=== PATIENT | male | born 1955 | race Caucasian/White ===

== ENCOUNTER 2017-10-18 06:22 | Inpatient (IN) | payer OTHER ==
--- NOTE | 2017-10-10 11:17 | HP ---
HISTORY AND PHYSICAL: DATE OF ADMISSION: 10/18/17 He is entering [facility] on 10/18/17 for a right total knee replacement. CHIEF COMPLAINT: Right knee pain. HISTORY OF PRESENT ILLNESS: This 62-year-old man has had right knee problems increasing over the past year with pain, limited walking distance 1 to 2 blocks , difficulty with stairs. He enjoys being very active. He wants to remain active and he desires to proceed with a knee replacement and we have recommended it. PAST MEDICAL HISTORY: No allergies. No history of chest pain or heart attack. He is able to walk up 2 flights of stairs without chest pain, without shortness of breath. He is able to swim for 1 mile. He has had some skin cancers removed. He has no history of DVT or pulmonary embolism. SOCIAL HISTORY: He quit smoking in 1998. He does not drink and he does attend AA. No bleeding tendencies. PHYSICAL EXAMINATION GENERAL: Well-nourished and well-developed, slight limp on the right. HEENT: Head is NC/AT. LUNGS: Clear bilaterally. HEART: Regular. S1, S2 normal. No murmurs or gallops. ABDOMEN: Soft and nontender. He does have an umbilical hernia. EXTREMITIES: Right knee extension -3 to 4 degrees, flexion 95 degrees with some discomfort. Right knee nontender medially, laterally, anteriorly, posteriorly. MCL and LCL are stable. Gt and posterior drawer are normal. The thigh and calf are soft. Posterior tibial pulses 2+ on the right. No swelling bilaterally of the legs, ankles, and feet. The right knee has severe arthritis in the medial compartment, moderate arthritis in the patellofemoral compartment. NEUROLOGIC: The cranial nerves are grossly intact. IMPRESSION: Severe right knee arthritis in the medial compartment. PLAN: Right total knee replacement. Questions were answered, risks and complications were reviewed. [id number]/[facility] #: [id number] [facility] HEALTHRickey
[~2017-10-18 06:22] MED LIST: Buffered Lidocaine 0.9% SYRIN* 5 ML/SYR SYRINGE INTRADERM ONE; Dexamethasone IV* 4 MG/ML 1 ML (4 MG) IV SLOW PU ONE; Famotidine IV* 10 MG/ML 2 ML (20 mg) IV ONE
[2017-10-18] MEDS ORDERED: Buffered Lidocaine 0.9% SYRIN* 5 ML/SYR SYRINGE ONE (06:29)
[2017-10-18] MEDS ORDERED: Dexamethasone IV* 4 MG/ML 1 ML (4 MG) ONE (06:29)
[2017-10-18] MEDS ORDERED: Famotidine IV* 10 MG/ML 2 ML (20 mg) ONE (06:29)
[2017-10-18] MEDS ORDERED: ceFAZolin 2 GM PREMIX (*) 2 GM/50 ML BAG IVPB ONE (06:29)
[2017-10-18] MEDS ORDERED: Midazolam* 1 MG/ML 10 ML VIAL (10 MG) ONE (07:13)
[2017-10-18] MEDS ORDERED: Propofol* 10 MG/ML 20 ML BTL IV PUSH ONE (07:27)
[2017-10-18] MEDS ORDERED: Ondansetron INJ* 2 MG/ML VIAL ONE (07:27)
[2017-10-18] MEDS ORDERED: Bupivacaine 0.5% SDV PF* 30 ML VIAL ONE (07:27)
[2017-10-18] MEDS ORDERED: KETAMINE HCL* 50 MG/ML 10 ML VIAL ONE (07:28)
[2017-10-18] MEDS ORDERED: Morphine PF AMP (0.5MG/ML)* 5 MG/10 ML AMP ONE (07:28)
[2017-10-18] MEDS ORDERED: DiMENhydriNATE IV* 50 MG/ML VIAL IV PUSH PRN (08:18)
[2017-10-18] MEDS ORDERED: Nalbuphine* 20 MG/ML 1 ML VIAL IV PRN ×2 (08:18)
[2017-10-18] MEDS ORDERED: Ondansetron INJ* 2 MG/ML VIAL IV PRN ×2 (08:18→10:30)
[2017-10-18] MEDS ORDERED: oxyCODONE/Acetamin 5/325 MG* TAB PO PRN (08:18)
[2017-10-18] MEDS ORDERED: Naloxone* 0.4 MG/ML 1 ML VIAL IV PRN (08:18)
[2017-10-18] MEDS ORDERED: Lidocaine 1% MPF wEPI 200,000* 30 ML SDV ONE (08:18)
[2017-10-18] MEDS ORDERED: Ropivacaine* 300 MG in NS 0.9% 250 ML* 240 ML EPIDURAL SCH (09:00)
[2017-10-18] MEDS ORDERED: Magnesium Hydroxide LIQ* 30 ML UDC PO PRN (10:30)
[2017-10-18] MEDS ORDERED: Acetaminophen TAB* 325 MG PO PRN (10:30)
[2017-10-18] MEDS ORDERED: Morphine INJ* 4 MG/ML 1 ML CARPUJECT IV PRN (10:30)
--- NOTE | 2017-10-18 11:37 | RAD ---
INDICATION: Status post total right knee replacement surgery. TECHNIQUE: 2 views of the right knee were obtained. FINDINGS: The patient is status post total right knee replacement surgery. The bones and prostheses are in normal alignment. There are 2 surgical drains anterior to the distal femur. There are multiple surgical marisabel present. IMPRESSION: STATUS POST TOTAL RIGHT KNEE REPLACEMENT SURGERY.
[2017-10-18] MEDS: Scopolamine 1.5 mg* PATCH TRANSDERM SCH ×2 (13:29→15:46)
[2017-10-18] MEDS: ceFAZolin 1 GM VIAL(*) 1 GM in D5W 50 ML BAG* 50 ML IVPB SCH ×2 (15:23→23:43)
[2017-10-18] MEDS: oxyCODONE/Acetamin 5/325 MG* TAB PO PRN ×2 (20:30→23:42)
[2017-10-18] MEDS: Docusate CAP* 100 MG PO SCH (22:32)
[2017-10-18] MEDS: Atorvastatin* 20 MG TAB PO SCH (22:32)
--- NOTE | 2017-10-19 01:34 | OP ---
DATE OF OPERATION: 10/18/17 - ROOM #342 DATE OF : 51 SURGICAL CARE: Right knee. SURGEON: Juan Manuel Potter MD ASSISTANTS: RENEE Rubin and kindergarten instructional assistant, Ely Rowe, surgical corsetier. ANESTHESIOLOGIST: Dr. Blaze Valentine. ANESTHESIA: Spinal with Duramorph and epidural IV sedation. PRE-OP DIAGNOSIS: Severe arthritis of the right knee in the medial compartment , especially with varus malalignment. POST-OP DIAGNOSIS: Severe arthritis of the right knee in the medial compartment , especially with varus malalignment. OPERATIVE PROCEDURE: Right total knee replacement. COMPONENTS UTILIZED: Linda Persona Knee, size 32 patella, size 9 femur, a 10 articular surface and a size F tibia. COMPLICATIONS: There were no complications. DRAINS: Two drains, right knee at the end of the case. BLOOD LOSS: 200 mL. REPLACEMENT: Crystalloid fluids. OPERATIVE INDICATIONS: Severe arthritis of the right knee. It has been no longer responsive to nonoperative care and a right total knee replacement was recommended. DESCRIPTION OF PROCEDURE: The patient was brought to the operating room and placed on the operating room table in a supine position. Following the administration of the anesthetic in a sitting position, he was returned to the supine position, a Kimball catheter was inserted. The right leg was noted to have a 2+ posterior tibial pulse and flexion contracture of the knee. The right leg was wrapped with a proximal thigh tourniquet. He was given a preliminary chlorhexidine prep and then a final formal prep with ChloraPrep from the tourniquet to the tips of the toes. After prepping, draping and sealing off, we did our universal protocol time-out confirming Hakan Mirza and a plan for right total knee replacement. We all agreed and we proceeded. The surgery was done without tourniquet until the clean up and cementing phase of the case and the knee was acutely flexed with the right foot on a padded foot piece. The skin incision went from 2 fingerbreadths proximal to superior pole of the patella to the medial aspect of the tibial tubercle. Careful hemostasis was checked and achieved throughout the case utilizing electrocautery. The knee was entered medial parapatellar dividing the soft tissues on the tibia down to the bone just medial to the tibial tubercle, proceeding up to the joint line. The quad tendon was divided at the junction of the rectus femoris and vastus medialis staying as close to vastus medialis as possible. The knee had clear goldish synovial fluid. The knee was completely eburnated medial femoral condyle and medial tibial plateau with osteophytes and scooping out of the medial tibial plateau some. There was osteophytes on the trochlea and on the lateral femoral condyle as well and osteophytes were overgrowing the intercondylar notch. The remains of the anterior horn of medial meniscus were excised. The anteromedial soft tissues on the tibia were elevated subperiosteally going around to the deep MCL and into the posteromedial corner of the knee. The patella was made so that it could be everted. The infrapatellar fat pad was largely excised and synovectomy completed around the patella. The lateral meniscus was carefully removed and care was taken to have good hemostasis in the region of the lateral genicula. The ACL and the PCL were uplifted from their femoral origins and the tibia was made so it could be subluxated forward from under the femur. The PCL was carefully excised and careful hemostasis was achieved. Care was taken especially in the region of the posterior cruciate ligament. The distal anterior femur was exposed subperiosteally for referencing and measuring. The proximal tibial cut was made first. Our goal here was to have a tibial surface that would be perpendicular to the long axis of the tibia and have a slight posterior slope removing a centimeter of bone laterally and a few millimeters medially. After this, the femoral intramedullary canal was entered with a drill. The canal was suctioned to discourage embolization and the distal femoral cutting guide was applied on the 2 and 6 degrees of valgus and a distal femoral cut was completed and a good extension gap was noted of 10. The femur was then measured for a size 9 and the external rotation was into the distal femur, then 9 was applied and the anterior, posterior and chamfering cuts were completed. We then finished removal of the posterior horn medial meniscus carefully, preserving the MCL, the osteophyte on the posteromedial femoral condyle, the lateral meniscus and the PCL. We had a nice flexion gap at 90 degrees of flexion with a 10 mm block. The femur was then completed with the intercondylar cut out and the femoral canal was cleaned x6 with saline, suctioned empty and then a bone plug inserted in the femur. The tibia was then completed for the size F and the knee was articulated and extended with a F tibia 10 articular surface and 9 femur. With full knee extension, stable ligaments in extension and satisfactory alignment in extension , and stable ligaments in 90 degrees of flexion. The patella was cut flat, a 32 was chosen, 3 drill holes were made and these were undercut for optimal cement interdigitation. A lateral release was not necessary. The leg was then exsanguinated. The tourniquet elevated to 275. The knee was cleaned in extension with 2 L of pulsed saline irrigation. The knee was then flexed, retractors were put into position and the bony surfaces were cleaned in flexion and then carefully dried. The cement was mixed and the components were cemented into position; the patella followed by tibia, followed by femur, each was impacted. Excess cement was removed and the knee was articulated and extended during the final hardening. The tourniquet was then deflated, careful hemostasis checked and achieved during closure. The pericapsular tissues were infiltrated with lidocaine with epinephrine 28 to 30 mL posteromedially and medially. The knee was thoroughly checked for loose fragments of cement and they were removed. The quad mechanism reapproximated with interrupted #1 Vicryl in [id number] fashion, the same with the medial retinaculum. Distally we used 0 Vicryl. The deep bursa and fascia closed with 0 Vicryl and then the superficial subcu closed with 3-0 Vicryl and then marisabel on the skin. The knee was completely extended and completely flexed well past 130 degrees several times during the closure. The posterior tibial pulse was noted to be 2 + at the end of the case. The drains were brought out the superolateral suprapatellar pouch. After inserting the marisabel, the knee was dressed with Betadine soaked release, the same with the drains and then sterile gauze, sterile Webril, cryotherapy cuff, ABD pads and then a 6-inch Johnny bandage loosely applied. The patient was returned to the recovery room in stable and satisfactory condition having tolerated the procedure very well. [id number]/[facility] #: [id number] MACK
[2017-10-19] MEDS: oxyCODONE/Acetamin 5/325 MG* TAB PO PRN ×5 (05:02→22:19)
[2017-10-19] MEDS ORDERED: oxyCODONE/Acetamin 5/325 MG* TAB PO PRN (06:00)
[2017-10-19 06:21] LABS: Hematocrit 35 % (42-52); Hemoglobin 12.1 g/dl (14.0-18.0)
[2017-10-19 06:29] LABS: Calcium 8.3 mg/dL (8.6-10.3); EGFR African American 125.2 (>60); EGFR Non-African American 97.3 (>60); Potassium 3.3 mmol/L (3.5-5.0)
[2017-10-19] MEDS: Aspirin TAB* 325 MG PO SCH (07:59)
[2017-10-19] MEDS: Lisinopril TAB* 10 MG PO SCH (07:59)
[2017-10-19] MEDS: Docusate CAP* 100 MG PO SCH ×2 (07:59→19:59)
[2017-10-19] MEDS: Hydrochlorothiazide TAB* 25 MG PO SCH (07:59)
[2017-10-19] MEDS: Multivitamins/Minerals TAB PO SCH (07:59)
[2017-10-19] MEDS: ceFAZolin 1 GM VIAL(*) 1 GM in D5W 50 ML BAG* 50 ML IVPB SCH (07:59)
--- NOTE | 2017-10-19 08:40 | PN ---
Progress Note - Progress Note Date of Service: 10/19/17 SOAP: Subjective: [] Objective: [] Vital Signs Temp 98.3 F 10/19/17 07:33 Pulse 63 10/19/17 07:33 Resp 18 10/19/17 07:59 BP 141/78 10/19/17 07:33 Pulse Ox 95 10/19/17 07:33 Intake & Output 10/18/17 10/19/17 10/19/17 18:59 06:59 18:59 Intake Total 2785 2385 220 Output Total 1200 675 Balance 1585 1710 220 Intake: IV Fluids 2560 980 LR 2500 980 NS 50ML, Cefazolin 2G 50 Ropivicaine 0.1 10 IVPB 55 ABX - CEFAZOLIN 55 Oral 225 1350 220 Output: Urine 300 Kimball 900 675 Laboratory Last Values Hgb 12.1 g/dl (14.0-18.0) L 10/19/17 05:52 Hct 35 % (42-52) L 10/19/17 05:52 Sodium 138 mmol/L (133-145) 10/19/17 05:52 Potassium 3.3 mmol/L (3.5-5.0) L 10/19/17 05:52 Chloride 103 mmol/L (101-111) 10/19/17 05:52 Carbon Dioxide 29 mmol/L (22-32) 10/19/17 05:52 Anion Gap 6 mmol/L (2-11) 10/19/17 05:52 BUN 20 mg/dL (6-24) 10/19/17 05:52 Creatinine 0.80 mg/dL (0.67-1.17) 10/19/17 05:52 Est GFR ( Amer) 125.2 (>60) 10/19/17 05:52 Est GFR (Non-Af Amer) 97.3 (>60) 10/19/17 05:52 BUN/Creatinine Ratio 25.0 (8-20) H 10/19/17 05:52 Glucose 122 mg/dL (70-100) H 10/19/17 05:52 Calcium 8.3 mg/dL (8.6-10.3) L 10/19/17 05:52 General: OOB in chair, well appearing in no acute distress RLE: Dressing CDI BL LE: Calves supple and nontender without erythema, edema or palpable cords. Negative genna's sign. DF/PF intact. DP/PT 2+ Assessment: []POD 1 s/p right total knee arthroplasty, Dr. Potter Plan: []WBAT PT/OT ASA 325 qd Morphine result in nausea. Switched to dilaudid. Option for Oxycodone added PRN. Hypokalemia - 20 mEq qd replacement ordered. Recheck outpatient
[2017-10-19] MEDS ORDERED: oxyCODONE TAB* 5 MG TAB PO PRN (09:36)
[2017-10-19] MEDS ORDERED: oxyCODONE TAB* 5 MG TAB ONE (09:55)
[2017-10-19] MEDS: oxyCODONE TAB* 5 MG TAB PO PRN ×4 (09:56→23:59)
--- NOTE | 2017-10-19 10:15 | PN ---
Progress Note - Progress Note Date of Service: 10/19/17 Note: Day one following right total knee. X-ray right knee after surgery was satisfactory, 2 views. Pain has been under control overnight. A leaky drain soaked his gown and bed yesterday PM and all was cleaned up by the nursing staff. Awake, alert, and no marked distress this AM. Breathing easily. Intake/output are satisfactory. Hct is 35%, low and acceptable. Potassium is low at 3.3. 2 drains removed right knee. Right post tib. pulse is 2 plus. Exercises done right ankle, knee and hip. Active hip IR and ER and extension. Active right ankle movements up and down. Some swelling of right ankle and foot. Impressions: Doing well after Total knee right. Acute blood loss anemia and hypokalemia. Plans: KCl replacement ordered. Mobilize on the TKR rehab protocol. Goals: Home 10/20 or 10/21
[2017-10-19] MEDS: Potassium Chloride LIQUID* 20 MEQ PACKET PO SCH (10:29)
[2017-10-19] MEDS: Atorvastatin* 20 MG TAB PO SCH (17:05)
[2017-10-19] MEDS: HYDROmorphone INJ* 2 MG/ML CARPUJECT SYRINGE IV SLOW PU PRN ×2 (18:57→23:55)
[2017-10-20] MEDS: oxyCODONE/Acetamin 5/325 MG* TAB PO PRN ×5 (02:24→21:06)
[2017-10-20] MEDS: HYDROmorphone INJ* 2 MG/ML CARPUJECT SYRINGE IV SLOW PU PRN (03:49)
[2017-10-20] MEDS ORDERED: HYDROmorphone INJ* 2 MG/ML CARPUJECT SYRINGE IV SLOW PU PRN ×2 (04:00→05:49)
[2017-10-20] MEDS ORDERED: Cyclobenzaprine TAB* 10 MG PO PRN (04:02)
[2017-10-20] MEDS: Morphine TAB Extended Release (*) 15 MG TAB.ER PO PRN ×2 (04:05→16:55)
[2017-10-20] MEDS: oxyCODONE TAB* 5 MG TAB PO PRN ×2 (04:17→10:02)
[2017-10-20 05:41] LABS: Hematocrit 36 % (42-52); Hemoglobin 12.5 g/dl (14.0-18.0)
[2017-10-20] MEDS ORDERED: HYDROmorphone INJ* 1 MG/ML CARPUJECT SYRINGE ONE (07:46)
[2017-10-20] MEDS: HYDROmorphone INJ* 1 MG/ML CARPUJECT SYRINGE IV SLOW PU PRN ×2 (07:48→08:28)
[2017-10-20] MEDS ORDERED: Diazepam TAB(*) 5 MG PO ONE (07:59)
[2017-10-20] MEDS ORDERED: Diazepam TAB(*) 5 MG PO PRN (08:01)
--- NOTE | 2017-10-20 08:09 | PN ---
Progress Note - Progress Note Date of Service: 10/20/17 Note: 99 degrees F, Hct 36% I adn O satisfactory. Lots of right knee pain overnight. Received 1 mg dilaudid, and more narcotic. Breathing easily. Dressing changed and surgery is swollen clean and dry, new betadine/telfa dressing applied. Movements encouraged and done. Right PT and DP pulses are 2 plus. Plans: Muscle relaxants, pain meds., drinking and up with walker.
[2017-10-20] MEDS: Multivitamins/Minerals TAB PO SCH (08:27)
[2017-10-20] MEDS: Ibuprofen TAB* 600 MG PO PRN (08:27)
[2017-10-20] MEDS: Aspirin TAB* 325 MG PO SCH (08:27)
[2017-10-20] MEDS: Hydrochlorothiazide TAB* 25 MG PO SCH (08:27)
[2017-10-20] MEDS: Lisinopril TAB* 10 MG PO SCH (08:28)
[2017-10-20] MEDS: Docusate CAP* 100 MG PO SCH ×2 (08:28→21:05)
[2017-10-20] MEDS: Potassium Chloride LIQUID* 20 MEQ PACKET PO SCH (08:34)
[2017-10-20] MEDS ORDERED: Potassium Chloride LIQUID* 20 MEQ PACKET PO SCH (09:00)
[2017-10-20] MEDS: Atorvastatin* 20 MG TAB PO SCH (16:57)
[2017-10-20] MEDS: diPHENhydraMINE PO* 25 MG PO PRN (21:06)
[2017-10-21] MEDS: oxyCODONE/Acetamin 5/325 MG* TAB PO PRN ×3 (02:04→11:05)
[2017-10-21] MEDS: diPHENhydraMINE PO* 25 MG PO PRN (04:00)
[2017-10-21 05:36] LABS: Hematocrit 35 % (42-52); Hemoglobin 12.3 g/dl (14.0-18.0)
[2017-10-21 08:08] VITALS: BP 159/78
[2017-10-21] MEDS: Hydrochlorothiazide TAB* 25 MG PO SCH (08:20)
[2017-10-21] MEDS: Aspirin TAB* 325 MG PO SCH (08:20)
[2017-10-21] MEDS: Docusate CAP* 100 MG PO SCH (08:20)
[2017-10-21] MEDS: Multivitamins/Minerals TAB PO SCH (08:20)
[2017-10-21] MEDS: Lisinopril TAB* 10 MG PO SCH (08:20)
[2017-10-21] MEDS: Ibuprofen TAB* 600 MG PO PRN (08:20)
[2017-10-21] MEDS ORDERED: Scopolamine PATCH Remove* 1 NOTE MISC PATCH OFF ONE (08:21)
[2017-10-21] MEDS: Potassium Chloride LIQUID* 20 MEQ PACKET PO SCH (08:23)
--- NOTE | 2017-10-21 10:26 | PN ---
Progress Note - Progress Note Date of Service: 10/21/17 SOAP: Subjective: 62 y/o male s/p R NIYAH 10/[address] Wise. Objective: General- Well appearing, NAD, AO sitting in chair comfortably MSK- Dressing removed, i d/c/i, minimal bloody drainage seen, new dressing placed, minimal R LE edeam, PT 2+ b/l, neg genna b/l, PT/ DP 2+ b/l. Vital Signs Temp 97.8 F 10/21/17 07:33 Pulse 76 10/21/17 07:33 Resp 16 10/21/17 08:07 BP 159/78 10/21/17 07:33 Pulse Ox 96 10/21/17 07:33 Intake & Output 10/20/17 10/21/17 10/21/17 18:59 06:59 18:59 Intake Total 995 800 230 Output Total 1500 1750 300 Balance -505 -950 -70 Intake: Oral 995 800 230 Output: Urine 1500 1750 300 Other: Estimated Void Medium Assessment: Stable 62 y/o male s/p R NIYAH 10/[address] Wise. Plan: - D/C to HOme today - Continue PT/ OT as shown - ASA 325mg BID x 30 days - Follow up with DR. Potter within 3-4 weeks - Pain control- continue motrin, oxycodone for pain every 3 hours as needed, flexeril for muscle spasm - Klor-con given for low K levels in house. Active Medications Generic Name Dose Route Start Last Admin Trade Name Freq PRN Reason Stop Dose Admin Acetaminophen 650 mg 10/18/17 10:30 Tylenol Tab* PO Q4H PRN pain and temp Aspirin 325 mg 10/19/17 09:00 10/21/17 08:20 Aspirin Tab* PO 325 mg DAILY GLENYS Administration Atorvastatin Calcium 20 mg 10/18/17 17:00 10/20/17 16:57 Lipitor* PO 20 mg 1700 GLENYS Administration Cyclobenzaprine HCl 10 mg 10/20/17 04:02 Flexeril Tab* PO Q8H PRN MUSCLE SPASMS Diazepam 5 mg 10/20/17 08:01 Valium Tab(*) PO Q8H PRN AGITATION - SEVERE Diphenhydramine HCl 25 mg 10/18/17 10:30 10/21/17 04:00 Benadryl Po* PO 25 mg Q6H PRN Administration itching Docusate Sodium 100 mg 10/18/17 21:00 10/21/17 08:20 Colace Cap* PO 100 mg BID GLENYS Administration Hydrochlorothiazide 25 mg 10/19/17 09:00 10/21/17 08:20 Hydrodiuril Tab* PO 25 mg QAM GLENYS Administration Hydromorphone HCl 0.5 mg 10/20/17 07:46 10/20/17 08:28 Dilaudid Injic* IV SLOW PU 0.5 mg Q2H PRN Administration PAIN Lactated Ringer's 1,000 mls @ 100 mls/hr 10/18/17 11:00 10/18/17 22:32 Lactated Ringers 1000 Ml Bag* IV 100 mls/hr PER RATE GLENYS Administration Ibuprofen 600 mg 10/20/17 07:46 10/21/17 08:20 Motrin Tab* PO 600 mg Q8H PRN Administration PAIN Lisinopril 20 mg 10/19/17 09:00 10/21/17 08:20 Prinivil Tab* PO 20 mg QAM GLENYS Administration Magnesium Hydroxide 30 ml 10/18/17 10:30 Milk Of Magnesia Liq* PO Q6H PRN constipation Morphine Sulfate 15 mg 10/20/17 04:00 10/20/17 16:55 Ms Contin(*) PO 15 mg Q12H PRN Administration PAIN Multivitamins/Minerals 1 tab 10/19/17 09:00 10/21/17 08:20 Theragran/Minerals Tab* PO 1 tab QAM GLENYS Administration Ondansetron HCl 4 mg 10/18/17 10:30 Zofran Inj* IV Q6H PRN nausea Oxycodone HCl 10 mg 10/19/17 09:51 10/20/17 10:02 Roxycodone Tab* PO 10 mg Q4H PRN Administration PAIN - MODERATE TO SEVERE Oxycodone HCl 10 mg 10/19/17 09:36 Roxycodone Tab* PO Q4H PRN PAIN - SEVERE Oxycodone/Acetaminophen 1 tab 10/19/17 06:00 Percocet 5/325 Tab* PO Q3H PRN PAIN - MODERATE Oxycodone/Acetaminophen 2 tab 10/19/17 06:00 10/21/17 05:30 Percocet 5/325 Tab* PO 2 tab Q3H PRN Administration PAIN - MODERATE TO SEVERE Potassium Chloride 20 meq 10/19/17 10:00 10/21/17 08:23 Klor-Con Liquid* PO 20 meq DAILY GLENYS Administration
--- NOTE | 2017-10-22 06:07 | DS ---
DISCHARGE SUMMARY: DATE OF ADMISSION: 10/18/17 DATE OF DISCHARGE: 10/21/17 ATTENDING PHYSICIAN: Dr. Potter * (DICTATED BY RENEE ANTONIO) CHIEF COMPLAINT: 1. Right knee pain. 2. Hypertension. 3. Elevated cholesterol. POSTOPERATIVE DIAGNOSES: 1. Status post right total knee arthroplasty. 2. Hypertension. 3. Elevated cholesterol. PROCEDURE: Right total knee arthroplasty. CONSULTATIONS: 1. Physical Therapy. 2. Occupational Therapy. BRIEF HISTORY: Mr. Graham is a very pleasant 62-year-old gentleman with severe end- stage degenerative osteoarthritis of the right knee, who failed conservative treatment and elected to undergo a right total knee arthroplasty on 10/18/[address] Potter. HOSPITAL COURSE: The patient was admitted to [facility] on 10/18/17 where he underwent a right total knee arthroplasty, which was uncomplicated. Postoperatively, he recovered on the surgical short stay unit. On postoperative day 1, his 2 drains were removed from his knee after one had dislodged causing bleeding on the surgical dressing. His Kimball was removed on postoperative day 1 and he was voiding on his own without difficulty. He advanced to a regular diet and his pain was controlled using only p.o. Percocet on date of discharge. His labs and vital signs remained stable. He was able to weight bear as tolerated on the right lower extremity. He advanced appropriately with physical therapy and occupational therapy and was deemed appropriate for home discharge. His DVT prophylaxis was managed with aspirin. By postoperative day 3, he was orthopedically and medically stable for discharge to go home with home services. PHYSICAL EXAMINATION: General: Well appearing, no acute distress, alert and oriented, sitting comfortably in the chair. Vital Signs: Temperature 97.8, pulse rate of 76, respirations of 16, oxygen saturation on room air 96%, blood pressure 159/78. Examination of the right lower extremity demonstrates bilateral equal dorsiflexion and plantar flexion with minimal edema noted in the right lower extremity. Posterior tibial pulses 2+ bilaterally. Sensation is grossly intact. Negative Homans' sign bilaterally. Dressing removed revealing a surgical incision over the right knee, held with marisabel without any signs of dehiscence, minimal bloody drainage seen on gauze, minimal edema around knee, mild ecchymosis seen, drainage sites appear intact. New dressing was placed without difficulty. LABORATORY DATA: On postoperative labs, H and H of 12.3 and 35. RADIOGRAPHS: Postoperative films taken on 10/18 of the right knee show a right knee prosthesis in proper placement. DISCHARGE MEDICATIONS: 1. Acetaminophen 650 mg p.o. q.4 hours p.r.n. 2. Aspirin 325 mg p.o. b.i.d. 3. Flexeril 10 mg p.o. q.8 hours p.r.n. 4. Colace 100 mg p.o. b.i.d. 5. Hydrochlorothiazide 25 mg p.o. q.a.m. 6. Ibuprofen 400 to 600 mg p.o. q.6 hours p.r.n. 7. Lisinopril 20 mg p.o. q.a.m. 8. Daily multivitamin 1 tablet p.o. daily. 9. Oxycodone 5 to 10 mg p.o. q.3 to 4 hours p.r.n. for pain. 10. Simvastatin 40 mg p.o. daily. 11. Diphenhydramine 25 mg p.o. q.h.s. p.r.n. not to be taken with narcotics. 12. Potassium chloride tablet 10 mEq extended release 10 mg p.o. b.i.d. x20 tablets. CONDITION ON DISCHARGE: Stable. DISCHARGE INSTRUCTIONS: Mr. Graham is a very pleasant 62-year-old gentleman postoperative day 3, status post right total knee arthroplasty, which was uncomplicated. He is orthopedically and medically stable for discharge to go home with home services. His labs and vital signs are stable. He will restart his home medications. He will take aspirin 325 mg b.i.d. to prevent blood clots. He was started on potassium chloride 20 mEq daily as he did have decreased potassium levels in-house and will follow up with his primary doctor with regards to continuation of this. He will take Colace up to 3 times a day for constipation. He will follow up with Dr. Potter in approximately 3 to 4 weeks and have his marisabel removed by visiting home nurse services. He was instructed to go to the ER should he develop chest pain or shortness of breath. Should he develop fever, increasing pain or redness, he is to call the office immediately. RENEE ANTONIO [id number]/[facility] #: [id number] MACK
== END 2017-10-21 11:30 | disposition home or self-care (01) | DRG 470 ==
LOC: AA 06:22 → SSU 12:06
PROVIDERS: ADMIT Orthopaedic Surgery; ATTEND Orthopaedic Surgery
PROC: 0SRC069 Replacement of Right Knee Joint with Oxidized Zirconium on Polyethylene Synthetic Substitute, Cemented, Open Approach (ICD-10-PCS; principal; 2017-10-18 07:30)
DX: M17.11 Unilateral primary osteoarthritis, right knee (principal); D62 Acute posthemorrhagic anemia; E78.00 Pure hypercholesterolemia, unspecified; I10 Essential (primary) hypertension; E87.6 Hypokalemia; M25.761 Osteophyte, right knee; Z87.891 Personal history of nicotine dependence; Z85.828 Personal history of other malignant neoplasm of skin
CPT/HCPCS: 36415; 80048; 85014; 85018; 88305; 88311; A9270-GY; J0690; J1100; J1170; J1240; J2001; J2250; J2405; J2704; J2795